=== PATIENT | female | born 1955 | race Caucasian/White ===

== ENCOUNTER 2016-09-29 16:22 | Emergency (ER) | payer OTHER ==
[2016-09-29 18:21] VITALS: BP 124/70
== END 2016-09-29 18:21 | disposition home or self-care (01) ==
LOC: ED 16:22
DX: E11.621 Type 2 diabetes mellitus with foot ulcer (principal); L97.519 Non-pressure chronic ulcer of other part of right foot with unspecified severity; E11.628 Type 2 diabetes mellitus with other skin complications; L03.031 Cellulitis of right toe; E11.59 Type 2 diabetes mellitus with other circulatory complications; I10 Essential (primary) hypertension
CPT/HCPCS: 90715

== ENCOUNTER 2016-10-11 19:22 | Emergency (ER) | payer OTHER ==
[2016-10-11 22:15] VITALS: BP 137/68
== END 2016-10-11 22:15 | disposition home or self-care (01) ==
LOC: ED 19:22
DX: S90.934A Unspecified superficial injury of right lesser toe(s), initial encounter (principal); E11.40 Type 2 diabetes mellitus with diabetic neuropathy, unspecified; I10 Essential (primary) hypertension; Z79.4 Long term (current) use of insulin; X58.XXXA Exposure to other specified factors, initial encounter; Y93.89 Activity, other specified; Y99.8 Other external cause status; Y92.89 Other specified places as the place of occurrence of the external cause

== ENCOUNTER 2016-11-15 18:22 | Emergency (ER) | payer OTHER ==
[2016-11-15 18:24] VITALS: BP 150/70
== END 2016-11-15 21:05 | disposition home or self-care (01) ==
LOC: ED 18:22
DX: L03.031 Cellulitis of right toe (principal); E11.40 Type 2 diabetes mellitus with diabetic neuropathy, unspecified; I10 Essential (primary) hypertension; Z79.4 Long term (current) use of insulin; Z79.84 Long term (current) use of oral hypoglycemic drugs; Z79.899 Other long term (current) drug therapy
CPT/HCPCS: 82962

== ENCOUNTER 2018-05-25 10:23 | Emergency (ER) | payer OTHER ==
[~2018-05-25] VITALS: Ht 157.5 cm; Wt 83.9 kg
[2018-05-25 10:24] VITALS: Ht 157.5 cm; Wt 83.9 kg
[2018-05-25] MEDS ORDERED: NEURONTIN600 MG PO (11:49)
[2018-05-25] MEDS ORDERED: FISH OIL + D31 EACH PO (11:50)
[2018-05-25] MEDS ORDERED: ASPIR 8181 MG PO (11:50)
[2018-05-25] MEDS ORDERED: ZES10 PO (11:50)
[2018-05-25] MEDS ORDERED: METFORMIN HYDR500 M1 PO (11:50)
[2018-05-25 12:03] VITALS: BP 140/68
== END 2018-05-25 12:10 | disposition home or self-care (01) ==
LOC: ED 10:23
DX: S43.402A Unspecified sprain of left shoulder joint, initial encounter (principal); S00.83XA Contusion of other part of head, initial encounter; I10 Essential (primary) hypertension; E11.9 Type 2 diabetes mellitus without complications; W18.39XA Other fall on same level, initial encounter; Y93.89 Activity, other specified; Y92.89 Other specified places as the place of occurrence of the external cause; Y99.8 Other external cause status
CPT/HCPCS: 82962; 90715